=== PATIENT | male | born 1980 | race Hispanic/Latino ===

== ENCOUNTER 2024-11-17 23:02 | Emergency (ER) | payer SELFPAY ==
[~2024-11-17] VITALS: Ht 177.8 cm; Wt 125.6 kg
[2024-11-17 23:05] VITALS: BP 150/102; PULSE 89; RESP 20; TEMP 98.2
--- NOTE | 2024-11-17 23:38 | ERN ---
ED Note History of Present Illness Stated Complaint: C/O RT EAR PAIN ONSET SATURDAY Chief Complaint: Earache Time Seen by MD: 23:09 Time Seen by Midlevel: 23:15 Dictation: [age] Year old male with no past medical history coming in complaining of right ear pain onset yesterday. Denies having any fever, cough or any new onset congestion. Patient states it usually congested but it is related to seasonal allergies. Allergies: Coded Allergies: No Known Allergies (Unverified Allergy, Unknown, 11/17/24) Past Medical History Past Medical History: No Pertinent History Surgical History: None Review of System Dictation Constitutional: Negative for fever,chills, and weight loss Eyes: Negative for injury, pain,redness, and discharge ENT: Complaining of right ear pain Cardiovascular: Negative for chest pain, palpitations, and edema Respiratory: Negative for shortness of breath, cough, and wheezing, Abdomen/GI: Negative for abdominal pain, nausea, vomiting, diarrhea, and constipation Back: Negative for injury and pain : Negative for injury, bleeding and discharge MS/Extremity: Negative for injury and deformity Skin: Negative for rash, and discoloration Neuro: Negative for headache, weakness, numbness, tingling, and seizure Psych: Negative for suicide ideation, homicidal ideation, and hallucinations Review of Systems: was completed Initial Vital Sign VS Vital Signs Date Time Temp Pulse Resp B/P (MAP) Pulse Ox O2 Delivery O2 Flow Rate FiO2 11/17/24 23:05 98.2 89 20 150/102 97 Room Air Physical Exam Dictation General: awake, alert, NAD Head/Face: Normocephalic, atraumatic Eyes: PERRL, EOMI, vision at baseline ENT: oral cavity clear, TMs clear no signs of infection, right otitis externa noted, swelling and erythema noted Neck: Trachea midline, supple, no nuchal rigidity Cardiovascular: RRR, normal S1/S2, No MRGs, no JVD Respiratory: CTAB, no respiratory distress, No rales or wheezes Abdomen: Soft, non-tender, non-distended, normal bowel sounds, no guarding or rebound. Skin: Warm, dry, normal turgor, no rash MS/Extremity: Pulses equal, no cyanosis, neurovascular intact, FROM Neuro: COAx4, GCS 15, strength 5/5, CN 2-12 intact, normal cerebellar exam, normal gait, Psych: Normal behavior, mood, and affect normal ED Course ED Course Orders Procedure Category Date Status Time Dexamethasone 4mg/Ml PHA 11/17/24 Complete 1ml Vial (Dexametha 23:28 Ketorolac PHA 11/17/24 Complete Tromethamine 15mg/Ml 23:28 Hydrocodone/Apap PHA 11/17/24 Complete 5/325 (Bledsoe 5/325mg) 23:28 Ciprofloxacin Hcl/Hc PHA 11/17/24 Complete (Cipro Hc Otic Susp 23:28 Current Medications Medications (Trade) Dose Ordered Sig/Tessie Route PRN Reason Start Time Stop Time Status Last Admin Dose Admin Acetaminophen/ Hydrocodone Bitart (NORco 5/325MG) 1 tab ONCE STAT PO 11/17/24 23:28 11/17/24 23:30 DC Ciprofloxacin/ Hydrocortisone (Cipro Hc Otic Susp) 3 drop ONCE STAT OTIC 11/17/24 23:28 11/17/24 23:30 DC Dexamethasone Sodium Phosphate (dexaMETHasone 4MG/ML 1ML VIAL) 8 mg ONCE STAT IM 11/17/24 23:28 11/17/24 23:30 DC Ketorolac Tromethamine (toRADol) 15 mg ONCE STAT IM 11/17/24 23:28 11/17/24 23:30 DC Vital Signs Date Time Temp Pulse Resp B/P (MAP) Pulse Ox O2 Delivery O2 Flow Rate FiO2 11/17/24 23:05 98.2 89 20 150/102 97 Room Air Medical Decision Making MDM MDM: [age] Year old male with no past medical history coming in complaining of right ear pain onset yesterday. Denies having any fever, cough or any new onset congestion. Patient states it usually congested but it is related to seasonal allergies. TM intact, no redness or swelling, however on the right ear canal there is erythema noted and swelling. Patient received IM steroid injection here along with ear drops to help decrease swelling and help pain. Patient will be sent home with the ear drops, and have patient follow up with PCP in 1-2 days. Differential diagnosis: Otitis media, otitis externa, perforated TM Rationale: Tests considered and ordered secondary to shared decision making include: Previous outside records reviewed: Old ER visits. Risk of complication and/or morbidity or mortality of patient management: None Medications-Per medication reconciliation Need for hospitalization: Patient does not meet criteria for hospitalization. Need for emergency major/minor surgery: No There are no social concerns with this patient. Prescription drug management Prescriptions will include symptomatic care Patient's prior external medical records from other ER visits were reviewed by me as indicated. Prior testing and results from previous visits were reviewed. Prior tests were taken into account with medical decision making and resource utilization, independent historian/historians were used to obtain complete medical history. I independently interpreted the test that were performed, results were reviewed by me and considered findings on radiology if ordered. Medical management and examination interpretation discussions were had by me with other qualified healthcare professionals as indicated for the patient's care. DX & DISP Disposition: Discharge Departure Impression: Primary Impression: Right otitis externa Condition: Stable Additional Instructions: You will take the drops that you received here in the ER and apply three drops twice a day for seven days. You can take Tylenol or Motrin [id number] for pain control. Return to the emergency room if you have any worsening symptoms. Time of Disposition: 23:38 I have reviewed the case, and I agree with, Diagnosis and Plan FÁTIMA BAPTISTE NP Nov 17, 2024 23:38
[2024-11-17] MEDS: ketOROlac 15MG/ML VIAL (15MG/ML) IM STA (23:44)
[2024-11-17] MEDS: dexaMETHasone SOD PHOSPHATE 4 MG/ML 1ML VIAL IM STA (23:44)
[2024-11-17] MEDS: HYDROcodone/APAP 5/325 1 TAB TABLET PO STA (23:44)
[2024-11-17] MEDS: CIPROFLOXACIN HCL 0.2%/HYDROCORT 1% 10 ML OTIC SUSP OTIC STA (23:44)
== END 2024-11-17 23:59 | disposition home or self-care (01) ==
LOC: EDH 23:02
DX: H60.91 Unspecified otitis externa, right ear (principal)
CPT/HCPCS: 99284; 96372 ×2; J1100; J1885